=== PATIENT | male | born 1980 | race Caucasian/White ===

== ENCOUNTER 2018-12-23 17:19 | Emergency (ER) | payer OTHER ==
[~2018-12-23] VITALS: Ht 185.4 cm; Wt 88.5 kg
--- NOTE | 2018-12-23 18:55 | NUR ---
Patient discharged to home in stable conditon. Written and verbal after care instructions given. Patient verbalizes understanding of instructions.
[2018-12-23 18:56] VITALS: BP 145/89
== END 2018-12-23 18:57 | disposition home or self-care (01) ==
LOC: ER 17:19
DX: F41.9 Anxiety disorder, unspecified (principal); F32.9 Major depressive disorder, single episode, unspecified
CPT/HCPCS: A4663